=== PATIENT | female | born 1945 | race Caucasian/White ===

== ENCOUNTER → 2017-02-19 | Outpatient (CLI) | payer OTHER, BC ==
[~2017-02-19] MED LIST: ACIPHEX 20 MG T20 MG PO; ADULT LOW DOSE81 MG PO; ADVIL COLD & S1 EAC1 PO; APAP500 OR; ASPIR 8181 MG PO; COLACE100 MG PO; COUMADIN 4 MG TA4 M1 PO; ENALAPRIL MALEA10 M1 PO; EVISTA OR; GABAPENTIN 100100 MG PO; METFORMIN HCL500 MG PO; MOBIC7.5 MG PO; NEXIUM40 MG PO; NORCO 10-325 T1 EACH PO; SYNTHROID75 MCG PO; TENORMIN25 MG PO; TRAMADOL 50 MG50 MG PO; TRAMADOL HCL50 MG PO; TRIAMTERENE-HC1 EAC1 PO; VITAMIN B-12100 MCG PO; VITAMIN D2000 UNIT PO; ZOCOR40 MG PO; ZOFRAN ODT4 MG PO
== END ==
LOC: CAT 05:00
DX: R51 Headache (principal)

== ENCOUNTER → 2017-04-02 | Outpatient (CLI) | payer OTHER, BC | LOC: RAD | DX: Z12.31 Encounter for screening mammogram for malignant neoplasm of breast (principal) ==

== ENCOUNTER → 2018-04-04 | Outpatient (CLI) | payer OTHER, BC | LOC: RAD 10:42 | DX: Z12.31 Encounter for screening mammogram for malignant neoplasm of breast (principal) ==

== ENCOUNTER → 2019-05-08 | Outpatient (CLI) | payer OTHER, BC | LOC: RAD 01:21 | DX: Z12.31 Encounter for screening mammogram for malignant neoplasm of breast (principal) ==

== ENCOUNTER → 2020-06-07 | Outpatient (CLI) | payer OTHER, BC | LOC: RAD 12:44 | PROVIDERS: ATTEND Obstetrics & Gynecology | DX: Z12.31 Encounter for screening mammogram for malignant neoplasm of breast (principal) ==

== ENCOUNTER → 2021-06-30 | Outpatient (CLI) | payer OTHER, BC | LOC: BC 11:37 | PROVIDERS: ATTEND Internal Medicine | DX: Z12.31 Encounter for screening mammogram for malignant neoplasm of breast (principal) ==